=== PATIENT | female | born 1970 | race African-American/Black ===

== ENCOUNTER 2016-11-27 09:56 | Emergency (ER) | payer SELFPAY ==
[~2016-11-27] VITALS: Ht 154.9 cm; Wt 51.5 kg
[2016-11-27 10:01] VITALS: Ht 154.9 cm; Wt 51.5 kg
[2016-11-27] MEDS ORDERED: ACETAMINOPHEN 500 MG TAB PO STA (10:33)
[2016-11-27] MEDS ORDERED: ONDANSETRON (ODT) 4 MG TAB ODT STA (10:33)
[2016-11-27] MEDS ORDERED: SOD CHLORIDE 0.9% 500 ML IV ONE (11:00)
[2016-11-27] MEDS ORDERED: ACET500C5 PO (12:33)
--- NOTE | 2016-11-27 12:39 | ERD ---
ER Documentation Chief Complaint Date/Time DATE: 11/27/16 TIME: 12:35 Chief Complaint Complains of frontal headache HPI Patient is a 46-year-old female with history of lupus who presents to the emergency department with a headache which started this morning. Patient describes the pain to be in her frontal region. Patient reports the pain to be bilaterally. Patient states the pain is "pulsating". Patient does report nausea however she denies any vomiting. Patient denies any fevers, chills, neck pain, back pain. Patient does report photophobia and phonophobia. Patient does report a history of headaches in the past. Patient states that this headache is "worse" than her usual headaches. Patient denies sudden, thunderclap onset. Patient states that she was worried because her blood pressure was slightly elevated earlier this morning. Patient denies any chest pain, shortness of breath, nausea, vomiting, blurry vision or loss of consciousness. Of note, patient is visiting from [place], patient is concerned about her financial situation given that she would have to pay [id number] for any testing or treatment received here in the ED. ROS All systems reviewed and are negative except as per history of present illness. Medications Home Meds Active Scripts Acetaminophen* (Tylophen*) 500 Mg Capsule, 1 CAP PO Q6H Y for PAIN AND OR ELEVATED TEMP, #20 CAP Prov:ELIA TONEY PA-C 11/27/16 Allergies Allergies: Coded Allergies: escitalopram (Verified Allergy, Intermediate, 11/27/16) PMhx/Soc History of Surgery: Yes (c section) Anesthesia Reaction: No Hx Neurological Disorder: No Hx Respiratory Disorders: No Hx Cardiac Disorders: No Hx Psychiatric Problems: No Hx Miscellaneous Medical Probl: No Hx Alcohol Use: No Hx Substance Use: No Hx Tobacco Use: No Physical Exam Vitals Vital Signs Date Time Temp Pulse Resp B/P Pulse Ox O2 Delivery O2 Flow Rate FiO2 11/27/16 12:55 98.3 69 20 124/66 96 Room Air 11/27/16 10:01 98.3 79 20 132/83 95 Physical Exam GENERAL: Well-developed, well-nourished female. Appears in no acute distress. Speaking in full sentences. HEAD: Normocephalic, atraumatic. No deformities or ecchymosis. Nontender palpation of bilateral temporal regions. EYE: Pupils equal, round, and reactive to light. EOMs intact. No conjunctival erythema. No eye discharge. ENT: External ear without any masses or tenderness. Auditory canals clear bilaterally. TM visualized bilaterally, non-erythematous, non-bulging. Nasal mucosa pink with no discharge. Oropharynx is pink without any tonsillar erythema or exudates. No uvula deviation. No kissing tonsils. NECK: Supple. Normal ROM of the neck. No cervical midline tenderness noted. LUNG: Clear to auscultation bilaterally. No rhonchi, wheezing, rales or coarse breath sounds. HEART: Regular rate and rhythm. No murmurs, rubs or gallops. BACK: No midline tenderness. EXTREMITIES: Equal pulses bilaterally. No peripheral clubbing, cyanosis or edema. No unilateral leg swelling. NEUROLOGIC: Alert and oriented x3, cooperative. Mood and affect appropriate to situation. Cranial nerves II through XII are grossly intact. Normal speech. Motor exam: 5/5 strength in upper and lower extremities. Sensory exam: Sensation intact to light touch on all four extremities. Steady gait. No pronator drift. SKIN: Normal color. Warm and dry. No rashes or lesions. Results 24 hrs Current Medications Medications (Trade) Dose Ordered Sig/Wilber Route PRN Reason Start Time Stop Time Status Last Admin Dose Admin Acetaminophen (Tylenol Tab) 1,000 mg ONCE STAT PO 11/27/16 10:33 11/27/16 10:36 DC 11/27/16 10:45 Ondansetron HCl 4 mg 4 mg ONCE STAT ODT 11/27/16 10:33 11/27/16 10:36 DC 11/27/16 10:45 Sodium Chloride (NS) 500 ml @ 500 mls/hr Q1H ONCE IV 11/27/16 11:00 11/27/16 11:59 DC 11/27/16 10:55 Procedures/MDM ED COURSE: The patient was stable throughout ED course. I kept the patient and/or family informed of laboratory and diagnostic imaging results throughout the ED course. Patient offered CT scan of brain on numerous interactions, however patient declined due to personal financial reasons. MEDICATIONS GIVEN: IV fluids, Tylenol, Zofran Patient tolerated medication well with no adverse reactions. Patient reported improvement in pain. MEDICAL DECISION MAKING: This is a 46-year-old female with a history of lupus who presents to the ED with concerns of a bilateral frontal headache which started this morning. Patient does report the pain to be pulsating. Patient reports nausea, photophobia, phonophobia however she denies any vomiting. Patient denies any fevers, chills, neck pain, neck stiffness visual changes, jaw claudication or LOC. Vital signs were reviewed. Patient was afebrile. Patient is not hypoxic. Full neurological exam was normal. Patient did report a history of headaches in the past however she stated that this headache is "worse" than previous headaches. I did offer the patient a CT scan of her brain given that this headache was "worse" and her history of lupus. Patient stated that she did not wish to undergo imaging studies at this time given that she is visiting [place] and does not have the financial means to provide for the cost of the visit. I did have the patient speak to registration services to help her with her financial means, however given that patient is not in [facility], she cannot apply for emergency [employer]. Patient was given IV fluids, Tylenol and Zofran. Patient did report significant improvement of her pain. Patient stated that "I may have been dehydrated." I again offer the patient a CT scan of her brain prior to discharge and she again declined these imaging studies. I re-explained to the patient that I am unable to rule out any intracranial pathology or hemorrhage without imaging studies. Patient understands and states that she will return if her symptoms worsen. GIven that her headache was given these findings, the patient's presentation is most consistent with tension vs migraine headache, however unable to rule out any intracranial hemorrhage or pathology. I have a much lower clinical concern for meningitis, encephalitis, preeclampsia, sinusitis, cluster headache. PRESCRIPTIONS: Tylenol DISCHARGE: At this time, patient is stable for discharge and outpatient management. I have encouraged the patient to hydrate well. I have instructed the patient to follow- up with his/her primary care physician in 1-2 days. If symptoms persist, patient may need to see a specialist for further examinations and testing. I have instructed the patient to promptly return to the ER at any time for any new or worsening symptoms including increased increased pain, fever, nausea, vomiting, numbness, neck stiffness, visual changes, weakness or LOC. The patient and/or family expressed understanding of and agreement with this plan. All questions were answered. Home care instructions were provided. Departure Diagnosis: Primary Impression: Headache Headache type: unspecified Headache chronicity pattern: acute headache Intractability: not intractable Qualified Code: R51 - Acute nonintractable headache, unspecified headache type Condition: Fair Patient Instructions: Self-Care for Headaches Referrals: [facility] YOU HAVE RECEIVED A MEDICAL SCREENING EXAM AND THE RESULTS INDICATE THAT YOU DO NOT HAVE A CONDITION THAT REQUIRES URGENT TREATMENT IN THE EMERGENCY DEPARTMENT. FURTHER EVALUATION AND TREATMENT OF YOUR CONDITION CAN WAIT UNTIL YOU ARE SEEN IN YOUR DOCTORS OFFICE WITHIN THE NEXT 1-2 DAYS. IT IS YOUR RESPONSIBILITY TO MAKE AN APPOINTMENT FOR FOLOW-UP CARE. IF YOU HAVE A PRIMARY DOCTOR --you should call your primary doctor and schedule an appointment IF YOU DO NOT HAVE A PRIMARY DOCTOR YOU CAN CALL OUR PHYSICIAN REFERRAL HOTLINE AT IF YOU CAN NOT AFFORD TO SEE A PHYSICIAN YOU CAN CHOSE FROM THE FOLLOWING [facility] [address] [facility] [address] [facility] [facility] [address] [facility] [address] [facility] [address] [facility] [facility] [address] [facility] [facility] YOU HAVE RECEIVED A MEDICAL SCREENING EXAM AND THE RESULTS INDICATE THAT YOU DO NOT HAVE A CONDITION THAT REQUIRES URGENT TREATMENT IN THE EMERGENCY DEPARTMENT. FURTHER EVALUATION AND TREATMENT OF YOUR CONDITION CAN WAIT UNTIL YOU ARE SEEN IN YOUR DOCTORS OFFICE WITHIN THE NEXT 1-2 DAYS. IT IS YOUR RESPONSIBILITY TO MAKE AN APPOINTMENT FOR FOLOW-UP CARE. IF YOU HAVE A PRIMARY DOCTOR --you should call your primary doctor and schedule and appointment IF YOU DO NOT HAVE A PRIMARY DOCTOR YOU CAN CALL OUR PHYSICIAN REFERRAL HOTLINE AT . IF YOU CAN NOT AFFORD TO SEE A PHYSICIAN YOU CAN CHOSE FROM THE FOLLOWING [facility] INSTITUTIONS: [facility] [address] [place] [address] [facility] [address] [place] [address] [facility] [address] [place] [address] [facility] Additional Instructions: Unable to rule out any intracranial pathology or hemorrhages at this time given that you did not want to have a CT scan of your brain obtained. Return to the ER IMMEDIATELY for any new or worsening symptoms including but not limited to pain, nausea, vomiting, confusion, excessive sleepiness, loss of consciousness. AVOID NSAIDS given risk of increased bleeding. Follow-up with your primary care physician upon returning to [place] immediately. Call your primary care doctor TOMORROW for an appointment during the next 1-2 days.See the doctor sooner or return here if your condition worsens before your appointment time. ELIA TONEY PA-C Nov 27, 2016 12:39
[2016-11-27 12:55] VITALS: BP 124/66; PULSE 69; RESP 20; TEMP 98.3
== END 2016-11-27 12:57 | disposition home or self-care (01) ==
LOC: FTE 09:56
DX: R51 Headache (principal); R11.0 Nausea
CPT/HCPCS: J7040